=== PATIENT | female | born 1970 | race Two or more races ===

== ENCOUNTER 2025-01-21 18:14 | Inpatient (IN) | payer OTHER ==
[~2025-01-21] VITALS: Ht 149.9 cm; Wt 80.3 kg
[2025-01-21] MEDS ORDERED: ALBUTEROL0.63 MG/3 IH (18:35)
[2025-01-21] MEDS ORDERED: SINGULAIR10 MG PO (18:35)
[2025-01-21] MEDS ORDERED: ENALAPRIL MALEA10 MG (18:36)
[2025-01-21] MEDS ORDERED: LORAZEPAM1 MG PO (18:36)
[2025-01-21] MEDS ORDERED: MELOXICAM15 MG (18:36)
[2025-01-21] MEDS ORDERED: WELLBUTRIN SR200 MG PO (18:36)
--- NOTE | 2025-01-21 18:39 | NUR ---
PTE ALERTA Y ORIENTADA X3, SE DANA S/V. PTE REFIERE QUE PRESENTA TOS DESDE HACE 7 LI. AL MOMENTO PTE CON SATURACION EN 98%. SE UBICA PTE EN FT.
[2025-01-21] MEDS ORDERED: LEVALBUTEROL HCL 1.25 MG/3 ML SOLUTION IH SCH (20:00)
[2025-01-21] MEDS ORDERED: METHYLPREDNISOLONE SOD SUCC 125 MG VIAL IV ONE (20:00)
[2025-01-21] MEDS ORDERED: GUAIFENESIN 200 MG/10 ML BLIST.PACK PO ONE ×2 (20:00→20:19)
[2025-01-21] MEDS ORDERED: BENZONATATE 100 MG CAPSULE PO ONE (20:00)
[2025-01-21] MEDS ORDERED: IPRATROPIUM BROMIDE 0.5 MG/2.5 ML AMPUL.NEB IH SCH (20:00)
[2025-01-21] MEDS ORDERED: MAGNESIUM SULFATE IN WATER 2 GM/50 ML PIGGYBAG IV ONE (20:00)
[2025-01-21] MEDS ORDERED: METHYLPREDNISOLONE SOD SUCC 125 MG VIAL ONE (20:19)
[2025-01-21] MEDS ORDERED: MAGNESIUM SULFATE 50% 1,000 MG/2 ML VIAL ONE (20:23)
--- NOTE | 2025-01-21 20:55 | NUR ---
SE ORIENTA PACIENTE SOBRE TX MEDICO Y JAIR REFIERE ENTENDER Y ACEPTAR EL MISMO. SE PROCEDE A TAWNY MUESTRAS DE LAB. BAJO MEDIDAS ASSEPTICAS. SE PROCEDE A CANALIZAR BAJO MEDIDAS ASEPTICAS, ROYAL DE EDEMA Y ERITEMA. SE PROCEDE A ADMINISTRAR MEDICAMENTOS HOA ORDEN MEDICA BAJO MEDIDAS ASEPTICAS. SE PROCEDE A NOTIFICAR PLACA Y TERAPIAS.
[2025-01-21 21:18] LABS: COVID-19 AG NEGATIVE (NEGATIVE)
[2025-01-21 21:19] LABS: BASO % 0.2 % (0.1-1.2); EOS # 0.09 (0.04-0.54); EOS % 0.6 % (0.7-7.0); LYMPH # 3.79 (1.18-3.74); LYMPH % 26.0 % (19.3-53.1); MEAN PLATELET VOLUME 9.20 fl (9.4-12.4); MONO # 0.76 (0.24-0.82); MONO % 5.2 % (4.7-12.5); NEUT # 9.76 (1.56-6.13); NEUT % 66.9 % (34.0-71.1); RED CELL DISTRIBUTION WIDTH 13.0 % (11.6-14.4)
[2025-01-21 21:45] LABS: BUN CREA RATIO 23.0 (7.0-25.0); CREATININE SERUM 1.04 mg/dL (0.55-1.02); GFR 55.01; GLUCOSE FASTING 85.0 mg/dL (65-100); OSMOLALITY SERUM 283.0 MOSM/KG (275-295)
[2025-01-21] MEDS ORDERED: LEVALBUTEROL HCL 1.25 MG/3 ML SOLUTION IH ONE (22:34)
[2025-01-21] MEDS ORDERED: IPRATROPIUM BROMIDE 0.5 MG/2.5 ML AMPUL.NEB IH ONE (22:34)
--- NOTE | 2025-01-22 07:01 | NUR ---
FEMINA ALERTA Y ORIENTADA X3 EN NADIRA POSICION MAS BAJA Y BARANDAS ELEVADAS POR SEGURIDAD. CANALIZADA CON H/L, PATENTE ROYAL DE EDEMA Y ERITEMA. PACIENTE CONSULTADA CON DR HARITHA CARVAJAL.
[2025-01-22] MEDS ORDERED: LEVALBUTEROL HCL 1.25 MG/3 ML SOLUTION IH ONE ×2 (10:32→15:54)
[2025-01-22] MEDS ORDERED: IPRATROPIUM BROMIDE 0.5 MG/2.5 ML AMPUL.NEB IH ONE ×3 (10:32→15:54)
[2025-01-22] MEDS ORDERED: METHYLPREDNISOLONE SOD SUCC 125 MG VIAL ONE (10:34)
[2025-01-22] MEDS ORDERED: AZITHROMYCIN 500 MG in DEXTROSE 5 % IN WATER 250 ML IV SCH (10:36)
[2025-01-22] MEDS ORDERED: CEFTRIAXONE SODIUM 2,000 MG in 0.9 % SODIUM CHLORIDE 100 ML IV SCH (10:36)
[2025-01-22] MEDS ORDERED: GUAIFEN/DEXTROMETHORPHAN/PE 10 ML BLIST.PACK PO SCH (10:37)
[2025-01-22] MEDS ORDERED: BUPROPION HCL 150 MG TABLET.SA PO SCH (10:37)
[2025-01-22] MEDS ORDERED: ACETAMINOPHEN 500 MG GEL..CAP PO PRN (10:45)
[2025-01-22] MEDS ORDERED: METHYLPREDNISOLONE SOD SUCC 125 MG VIAL IV ONE (10:45)
[2025-01-22] MEDS ORDERED: IPRATROPIUM BROMIDE 0.5 MG/2.5 ML AMPUL.NEB IH SCH ×2 (10:45→13:00)
[2025-01-22] MEDS ORDERED: LEVALBUTEROL HCL 1.25 MG/3 ML SOLUTION IH SCH ×2 (10:45→13:00)
[2025-01-22] MEDS ORDERED: 0.9 % SODIUM CHLORIDE 1,000 ML IV SCH (10:45)
[2025-01-22] MEDS ORDERED: MAGNESIUM SULFATE/D5W 100 ML IV ONE (10:45)
[2025-01-22] MEDS ORDERED: KETOROLAC TROMETHAMINE 15 MG VIAL IU ONE (10:45)
[2025-01-22] MEDS ORDERED: CEFTRIAXONE SODIUM 2,000 MG VIAL ONE (11:26)
[2025-01-22] MEDS ORDERED: AZITHROMYCIN 500 MG VIAL IV ONE (11:27)
[2025-01-22] MEDS ORDERED: GUAIFEN/DEXTROMETHORPHAN/PE 10 ML BLIST.PACK PO ONE (11:27)
[2025-01-22 11:54] VITALS: BP 130/80
[2025-01-22] MEDS ORDERED: BENZONATATE 200 MG CAPSULE PO SCH (13:00)
[2025-01-22] MEDS ORDERED: LEVALBUTEROL HCL 0.63 MG/3 ML SOLUTION IH ONE (13:09)
[2025-01-22] MEDS ORDERED: MONTELUKAST SODIUM 10 MG TABLET PO SCH (17:00)
[2025-01-22] MEDS ORDERED: METHYLPREDNISOLONE SOD SUCC 40 MG VIAL IV SCH (17:00)
[2025-01-22 18:07] VITALS: BP 128/84
[2025-01-23 02:11] VITALS: BP 107/67; O2SAT 97
[2025-01-23 07:30] LABS: TSH 0.273 uIU/mL (0.358-3.74)
[2025-01-23] MEDS ORDERED: LACTOBACILLUS ACIDOPHILUS 1 CAP CAP PO SCH (09:00)
[2025-01-23] MEDS ORDERED: ENOXAPARIN SODIUM 40 MG/0.4 ML SYRINGE SUBCUTANEO SCH (09:00)
[2025-01-23] MEDS ORDERED: FAMOTIDINE/PF 20 MG in 0.9 % SODIUM CHLORIDE 8 ML IV PUSH SCH (09:00)
[2025-01-23 09:24] VITALS: BP 138/79
[2025-01-23 17:42] VITALS: BP 130/80
[2025-01-23] MEDS ORDERED: TRAZODONE HCL 50 MG TABLET PO SCH (21:00)
[2025-01-23] MEDS ORDERED: TEMAZEPAM 15 MG CAPSULE PO SCH (21:00)
[2025-01-24 03:34] VITALS: BP 125/68; O2SAT 98
[2025-01-24 09:46] VITALS: BP 118/84; O2SAT 98
[2025-01-24] MEDS ORDERED: AZITHROMYCIN 500 MG VIAL IV NR (14:30)
[2025-01-24] MEDS ORDERED: AZITHROMYCIN 500 MG VIAL IV ONE (14:58)
[2025-01-24] MEDS ORDERED: CODEINE/PROMETHAZINE HCL 1 ML ML PO SCH (18:00)
[2025-01-24 20:57] VITALS: BP 154/85; O2SAT 96
[2025-01-25 02:46] VITALS: BP 131/84; O2SAT 99
[2025-01-25] MEDS ORDERED: AZITHROMYCIN 500 MG VIAL IV ONE (07:48)
[2025-01-25] MEDS ORDERED: AZITHROMYCIN 500 MG VIAL IV SCH (09:00)
[2025-01-25 09:17] VITALS: BP 145/89; O2SAT 99
[2025-01-25 17:33] VITALS: BP 155/86
[2025-01-26 01:33] VITALS: BP 117/81; O2SAT 98
[2025-01-26 01:36] VITALS: BP 105/68; O2SAT 96
[2025-01-26] MEDS ORDERED: AZITHROMYCIN 500 MG VIAL IV ONE (07:47)
[2025-01-26 08:59] VITALS: BP 114/76; O2SAT 98
[2025-01-26 11:27] LABS: URINE APPEARANCE Clear; URINE BILIRRUBIN Negative (NEGATIVE); URINE BLOOD Negative; URINE COLOR Yellow; URINE GLUCOSE Negative (NEGATIVE); URINE KETONE Negative (NEGATIVE); URINE LEUKOCYTE Negative; URINE NITRATE Negative; URINE PROTEIN Negative (NEGATIVE); URINE UROBILINOGEN 0.2 E.U./dl
[2025-01-26 11:28] LABS: URINE BACTERIA 8.3 uL (0.0-1933); URINE EPITHELIAL CELLS 2.6 uL (0.0-38.8); URINE RBC 29.6 uL (0.0-20.8); URINE WBC 2.4 uL (0.0-23.2)
[2025-01-26 11:35] LABS: URINE CAST 0.14 uL (0.0-1.40)
[2025-01-26] MEDS ORDERED: ORPHENADRINE CITRATE 30 MG/ML AMPUL IM PRN (12:30)
[2025-01-26] MEDS ORDERED: KETOROLAC TROMETHAMINE 30 MG VIAL IM PRN (12:30)
[2025-01-26] MEDS ORDERED: METHYLPREDNISOLONE SOD SUCC 40 MG VIAL IV SCH (21:00)
[2025-01-26 21:36] VITALS: BP 121/87
[2025-01-27 02:03] VITALS: BP 104/67; O2SAT 97
[2025-01-27] MEDS ORDERED: AZITHROMYCIN 500 MG VIAL IV ONE (08:31)
[2025-01-27 09:56] VITALS: BP 112/73; O2SAT 99
[2025-01-27] MEDS ORDERED: SODIUM CHLORIDE FOR INHALATION 1 VIAL.NEB IH SCH (17:00)
[2025-01-27] MEDS ORDERED: METHYLPREDNISOLONE SOD SUCC 40 MG VIAL IV SCH (21:00)
[2025-01-28 03:34] VITALS: BP 130/77; O2SAT 95
[2025-01-28 06:41] LABS: BASO % 0.3 % (0.1-1.2); EOS # 0.13 (0.04-0.54); EOS % 1.1 % (0.7-7.0); LYMPH # 2.00 (1.18-3.74); LYMPH % 16.2 % (19.3-53.1); MEAN PLATELET VOLUME 8.90 fl (9.4-12.4); MONO # 0.75 (0.24-0.82); MONO % 6.1 % (4.7-12.5); NEUT # 8.52 (1.56-6.13); NEUT % 69.2 % (34.0-71.1); RED CELL DISTRIBUTION WIDTH 13.3 % (11.6-14.4)
[2025-01-28 07:06] LABS: BUN CREA RATIO 24.0 (7.0-25.0); CREATININE SERUM 1.19 mg/dL (0.55-1.02); GFR 47.09; GLUCOSE FASTING 158.0 mg/dL (65-100); OSMOLALITY SERUM 290.0 MOSM/KG (275-295)
[2025-01-28 07:42] LABS: BAND MAN 6.0 %; LYMPHOCYTE MAN 16.0 %; METAMYELOCYTE 3.0 %; MONOCYTE MAN 4.0 %; NEUTROPHILS MAN 70.0 %
[2025-01-28 08:23] VITALS: BP 102/70
[2025-01-28] MEDS ORDERED: AZITHROMYCIN 500 MG VIAL IV ONE (08:23)
[2025-01-28] MEDS ORDERED: SODIUM CHLORIDE FOR INHALATION 1 VIAL.NEB IH SCH ×2 (09:00→21:00)
[2025-01-28 16:23] VITALS: BP 136/82; O2SAT 97
[2025-01-28] MEDS ORDERED: GUAIFENESIN 600 MG TABLET.SA PO SCH (17:00)
[2025-01-29 01:52] VITALS: BP 129/82; O2SAT 94
[2025-01-29] MEDS ORDERED: AZITHROMYCIN 500 MG VIAL IV ONE (08:36)
[2025-01-29 09:38] VITALS: BP 121/85; BP 131/83; O2SAT 95; O2SAT 98
[2025-01-29] MEDS ORDERED: MEDROLPACK PO (11:07)
[2025-01-29] MEDS ORDERED: MONTELUKAST SOD10 MG PO (11:07)
[2025-01-29] MEDS ORDERED: IPRATROPIU0.2 MG/1 M IH (11:07)
[2025-01-29] MEDS ORDERED: MUCINEX600 MG PO (11:07)
[2025-01-29] MEDS ORDERED: XOPENEX CO1.25 MG/0. IH (11:07)
[2025-01-29] MEDS ORDERED: TUSSI PRES-B L480 ML PO (11:07)
== END 2025-01-29 15:33 | disposition home or self-care (01) | DRG 202 ==
LOC: ER 18:15 → MEDI 01-22 10:58 → SEC-K 01-22 10:58 → MEDI 01-22 15:07
PROVIDERS: General Practice; Internal Medicine; ADMIT Internal Medicine; ATTEND Internal Medicine
PROC: BB24ZZZ Computerized Tomography (CT Scan) of Bilateral Lungs (ICD-10-PCS; principal; 2025-01-22)
PROC: 3E0F7GC Introduction of Other Therapeutic Substance into Respiratory Tract, Via Natural or Artificial Opening (ICD-10-PCS; 2025-01-22)
DX: J45.41 Moderate persistent asthma with (acute) exacerbation (principal); R65.10 Systemic inflammatory response syndrome (SIRS) of non-infectious origin without acute organ dysfunction; I10 Essential (primary) hypertension